=== PATIENT | male | born 1995 | race Caucasian/White ===

== ENCOUNTER 2017-05-14 19:45 | Emergency (ER) | payer MEDICAID ==
[~2017-05-14] VITALS: Ht 167.6 cm; Wt 59.1 kg
[2017-05-14] MEDS ORDERED: PERTUSS(ACELL),DIPH,TET VAC/PF 0.5 ML VIAL IM ONE (21:30)
[2017-05-14] MEDS ORDERED: ACETAMINOPHEN 325 MG TABLET PO ONE (22:00)
[2017-05-14] MEDS ORDERED: LIDOCAINE HCL 1% 10 ML VIAL INJ ONE (23:00)
[2017-05-14 23:56] VITALS: BP 122/43
== END 2017-05-14 23:57 | disposition home or self-care (01) ==
LOC: EDBD 19:48 → EMS 19:48
DX: S01.511A Laceration without foreign body of lip, initial encounter (principal); S00.411A Abrasion of right ear, initial encounter; S00.81XA Abrasion of other part of head, initial encounter; F17.210 Nicotine dependence, cigarettes, uncomplicated; Y04.2XXA Assault by strike against or bumped into by another person, initial encounter; Y93.89 Activity, other specified; Y92.830 Public park as the place of occurrence of the external cause; Y99.8 Other external cause status
CPT/HCPCS: 70450; 90471; 90715; 99284; J3490